=== PATIENT | female | born 1990 | race Caucasian/White ===

== ENCOUNTER → 2021-10-30 | Outpatient (CLI) | LOC: LABNPT 14:49 | PROVIDERS: ATTEND Family Medicine | DX: Z53.9 Procedure and treatment not carried out, unspecified reason (principal) ==

== ENCOUNTER → 2021-11-23 | Outpatient (CLI) | payer MEDICAID | LOC: LAB FS 16:39 | PROVIDERS: ATTEND Family Medicine | DX: Z34.92 Encounter for supervision of normal pregnancy, unspecified, second trimester (principal); Z3A.00 Weeks of gestation of pregnancy not specified | CPT/HCPCS: 87077; 87088 ==